=== PATIENT | female | born 2000 | race Caucasian/White ===

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

== ENCOUNTER 2021-02-13 18:45 | Emergency (ER) | payer OTHER ==
--- OUTSIDE RECORDS SUMMARY | 2021-02-13 18:47 | XMS REPORT | Continuity of Care Document ---
:2000 Author Organization [facility] t Address [address] [place] [address] Care Team Providers Name Role Phone Unavailable Unavailable Unavailable Problems This patient has no known problems. Allergies, Adverse Reactions, Alerts This patient has no known allergies or adverse reactions. Medications This patient has no known medications. Procedures This patient has no known procedures. Encounters Start End Encounter Admission Attending Care Care Encounter Source Date/Time Date/Time Type Type Clinicians Facility Department ID 2020-03-10 2020-03-10 Outpatient [facility] [id number] [facility] 2020-01-16 2020-01-16 Outpatient [facility] [id number] [facility] 2019-12-19 2019-12-19 Outpatient [facility] [id number] [facility] 2019-12-18 2019-12-18 Outpatient [facility] [id number] [facility] 2019-12-10 2019-12-10 Outpatient [facility] [id number] [facility] 2019-12-09 2019-12-09 [facility] [id number] Results This patient has no known results.
--- NOTE | 2021-02-13 22:47 | ER ---
Nurse's Notes [facility] Name: Alia Gonzalez Age: 20 yrs Sex: Female : 2000 Arrival Date: 02/13/2021 Time: 18:52 Bed 11 Private MD: Diagnosis: Chest pain, unspecified;Muscle spasm of back Presentation: 02/13 21:18 Chief complaint: Patient states: they have been having intermittent stabbing back pain bb which seems to move around x 1 week worsened today and it is making it hard to breath. Coronavirus screen: At this time, the client does not indicate any symptoms associated with coronavirus-19. Ebola Screen: No symptoms or risks identified at this time. Initial Sepsis Screen: Does the patient meet any 2 criteria? No. Patient's initial sepsis screen is negative. Does the patient have a suspected source of infection? No. Patient's initial sepsis screen is negative. Risk Assessment: Do you want to hurt yourself or someone else? Patient reports no desire to harm self or others. Onset of symptoms was February 07, 2021. 21:18 Method Of Arrival: Ambulatory bb 21:18 Acuity: ADRIANA 3 bb Triage Assessment: 21:21 General: Appears in no apparent distress. uncomfortable, Behavior is calm, cooperative. bb Pain: Complains of pain in back Pain currently is 4 out of 10 on a pain scale. Neuro: Level of Consciousness is awake, alert, obeys commands, Oriented to person, place, time, situation. Cardiovascular: Capillary refill < 3 seconds Patient's skin is warm and dry. Respiratory: Respiratory effort is even, unlabored. GI: No signs and/or symptoms were reported involving the gastrointestinal system. Derm: Skin is pink, warm \T\ dry. Musculoskeletal: Circulation, motion, and sensation intact. SHIFTMAN: 21:21 LMP N/A - Irregular menses bb Historical: - Allergies: 21:21 No Known Allergies; bb - Immunization history:: Adult Immunizations up to date, Client reports having NOT received the Covid vaccine. - Social history:: Smoking status: Patient denies any tobacco usage or history of. Patient uses alcohol, occasionally. street drugs, marijuana. Screenin:35 Abuse screen: Denies threats or abuse. Nutritional screening: No deficits noted. bb Tuberculosis screening: No symptoms or risk factors identified. Fall Risk None identified. Assessment: 21:35 Reassessment: No changes from previously documented assessment. Patient is alert, bb oriented x 3, equal unlabored respirations, skin warm/dry/pink. see triage assessment. 22:55 Reassessment: Patient is alert, oriented x 3, equal unlabored respirations, skin bb warm/dry/pink. pt verbalized understanding of and agrees to plan of care discharge instructions given pt ambulated with steady gait to exit accompanied by family. Vital Signs: 21:18 BP 130 / 91; Pulse 72; Resp 18 S; Temp 98.2(O); Pulse Ox 100% on R/A; Weight 65.77 kg bb (R); Height 5 ft. 7 in. (170.18 cm) (R); Pain 4/10; 22:53 BP 131 / 87; Pulse 77; Resp 16; Temp 97.9; Pulse Ox 100% ; lt3 21:18 Body Mass Index 22.71 (65.77 kg, 170.18 cm) bb ED Course: 18:52 Patient arrived in ED. ds1 21:21 Triage completed. bb 21:21 Arm band placed on Patient placed in an exam room, on a stretcher, on pulse oximetry. bb Family accompanied patient. 21:25 Felipe Cohn PA is PHCP. jr8 21:25 Donovan Cook MD is Attending Physician. jr8 21:34 Summer Eaton, CALEB is Primary Nurse. bb 21:35 Patient has correct armband on for positive identification. bb 21:35 Patient maintains SpO2 saturation greater than 95% on room air. bb 22:28 XRAY Chest Pa And Lat (2 Views) In Process Unspecified. EDMS 22:55 No provider procedures requiring assistance completed. Patient did not have IV access bb during this emergency room visit. Administered Medications: No medications were administered Outcome: 22:46 Discharge ordered by . jrRadha 22:55 Discharged to home ambulatory, with friend. bb 22:55 Condition: stable 22:55 Discharge instructions given to patient, Instructed on discharge instructions, follow up and referral plans. medication usage, Demonstrated understanding of instructions, follow-up care, medications, Prescriptions given X 2. 23:05 Patient left the ED. bb Signatures: Dispatcher [facility] BerryMarixa ds1 Summer Eaton, RN RN bb Felipe Cohn PA PA jr8 Marianela Adorno lt3
--- NOTE | 2021-02-13 22:47 | EDPHYS ---
Physician Documentation [facility] Name: Alia Gonzalez Age: 20 yrs Sex: Female : 2000 Arrival Date: 02/13/2021 Time: 18:52 Bed 11 Private MD: ED Physician Donovan Cook HPI: 02/13 22:23 This 20 yrs old Female presents to ER via Ambulatory with complaints of Chest Pain. jr8 22:23 This is a 20-year-old female patient that presented to the emergency room with jr8 complaints of right upper back pain and right lateral chest pain. Patient stated that she had traumatic incident a couple weeks ago that caused initial pain to her right lateral chest. Had been improving until she went back to work a couple days ago and now is having upper right back pain along with right lateral chest pain and shortness of breath. Denies new trauma to her back or chest.. 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 - Social history:: Smoking status: Patient denies any tobacco usage or history of. Patient uses alcohol, occasionally. street drugs, marijuana. ROS: 22:23 Eyes: Negative for injury, pain, redness, and discharge, ENT: Negative for injury, jr8 pain, and discharge, Neck: Negative for injury, pain, and swelling, Respiratory: Negative for shortness of breath, cough, wheezing, and pleuritic chest pain, Abdomen/GI: Negative for abdominal pain, nausea, vomiting, diarrhea, and constipation, MS/Extremity: Negative for injury and deformity, Skin: Negative for injury, rash, and discoloration, Neuro: Negative for headache, weakness, numbness, tingling, and seizure. 22:23 Cardiovascular: Positive for chest pain, with movement. 22:23 Back: Positive for pain at rest, pain with movement, Negative for radiated pain. Exam: 22:23 Constitutional: This is a well developed, well nourished patient who is awake, alert, jr8 and in no acute distress. Neck: Trachea midline, no thyromegaly or masses palpated, and no cervical lymphadenopathy. Supple, full range of motion without nuchal rigidity, or vertebral point tenderness. No Meningismus. Cardiovascular: Regular rate and rhythm with a normal S1 and S2. No gallops, murmurs, or rubs. Normal PMI, no JVD. No pulse deficits. Respiratory: Lungs have equal breath sounds bilaterally, clear to auscultation and percussion. No rales, rhonchi or wheezes noted. No increased work of breathing, no retractions or nasal flaring. Abdomen/GI: Soft, non-tender, with normal bowel sounds. No distension or tympany. No guarding or rebound. No evidence of tenderness throughout. Skin: Warm, dry with normal turgor. Normal color with no rashes, no lesions, and no evidence of cellulitis. MS/ Extremity: Pulses equal, no cyanosis. Neurovascular intact. Full, normal range of motion. Neuro: Awake and alert, GCS 15, oriented to person, place, time, and situation. Cranial nerves II-XII grossly intact. Motor strength 5/5 in all extremities. Sensory grossly intact. 22:23 Chest/axilla: Inspection: normal, Palpation: tenderness, that is mild, of the right lateral anterior chest. 22:23 Back: pain, that is moderate, of the right scapular area and right subscapular area, ROM is painful, normal spinal alignment noted, muscle spasm, is appreciated in the right scapular area and right subscapular area. Vital Signs: 21:18 BP 130 / 91; Pulse 72; Resp 18 S; Temp 98.2(O); Pulse Ox 100% on R/A; Weight 65.77 kg bb (R); Height 5 ft. 7 in. (170.18 cm) (R); Pain 4/10; 22:53 BP 131 / 87; Pulse 77; Resp 16; Temp 97.9; Pulse Ox 100% ; lt3 21:18 Body Mass Index 22.71 (65.77 kg, 170.18 cm) bb MDM: 21:25 Patient medically screened. jr8 22:23 Data reviewed: vital signs, nurses notes, radiologic studies, plain films. Data jr8 interpreted: Pulse oximetry: on room air is 100 %. Interpretation: normal. Counseling: I had a detailed discussion with the patient and/or guardian regarding: the historical points, exam findings, and any diagnostic results supporting the discharge/admit diagnosis, radiology results, the need for outpatient follow up, a family practitioner, to return to the emergency department if symptoms worsen or persist or if there are any questions or concerns that arise at home. 22:45 ED course: No acute findings on two-view chest x-ray. Most likely musculoskeletal at jr8 this point. We will start her on anti-inflammatory muscle relaxant. Knows to come back if she were to worsen at any point time.. 02/13 21:57 Order name: XRAY Chest Pa And Lat (2 Views) jr8 Administered Medications: No medications were administered Disposition: 02/14 04:04 Co-signature as Attending Physician, Donovan Cook MD. mh7 Disposition Summary: 02/13/21 22:46 Discharge Ordered Location: Home [facility] Problem: new jr8 Symptoms: have improved jr8 Condition: Stable jr8 Diagnosis - Chest pain, unspecified jr8 - Muscle spasm of back jr8 Followup: jr8 - With: Private Physician - When: 1 week - Reason: Recheck today's complaints, Continuance of care, Re-evaluation by your physician Discharge Instructions: - Discharge Summary Sheet jr8 - Chest Wall Pain jr8 - Muscle Cramps and Spasms jr8 Forms: - Medication Reconciliation Form jr8 - Thank You Letter jr8 - Antibiotic Education jr8 - Prescription Opioid Use jr8 Prescriptions: - Ibuprofen 800 mg Oral Tablet - take 1 tablet by ORAL route every 12 hours As needed take with food; 20 tablet; jr8 Refills: 0, Product Selection Permitted - Cyclobenzaprine 10 mg Oral Tablet - take 1 tablet by ORAL route every 8 hours As needed; 30 tablet; Refills: 0, jr8 Product Selection Permitted Signatures: Dispatcher [employer] Summer Jett, RN RN Felipe Zaldivar PA PA jr8 Donovan Cook MD MD mh7
[2021-02-13 23:21] VITALS: O2SAT 100
[2021-02-13 23:23] VITALS: BP 131/87; TEMP 97.9
--- NOTE | 2021-02-14 07:37 | RAD REPORT ---
EXAM DESCRIPTION: RAD - Chest Pa And Lat (2 Views) - 02/13/2021 10:28 pm CLINICAL HISTORY: CHEST PAIN COMPARISON: No comparisons FINDINGS: Lines: None. Lungs: No evidence of edema or pneumonia. Pleural: No significant pleural effusions or pneumothorax. Cardiac: The heart size is within normal limits. Bones: No acute fractures. Scoliosis. Other: IMPRESSION: No acute cardiopulmonary disease.
== END 2021-02-13 23:05 | disposition home or self-care (01) ==
LOC: ER 18:45
DX: M62.830 Muscle spasm of back (principal)
CPT/HCPCS: 71046; 99284

== ENCOUNTER 2021-09-11 02:36 | Emergency (ER) | payer OTHER ==
--- NOTE | 2021-09-11 03:25 | ER ---
Nurse's Notes [facility] Name: Alia Gonzalez Age: 21 yrs Sex: Female : 2000 Arrival Date: 09/11/2021 Time: 02:40 Bed 26 Private MD: Diagnosis: Contusion of left thigh;Abrasion, left thigh Presentation: 09/11 02:44 Chief complaint: Patient states: "I have a dog bite on my leg that happened a few ours tw5 ago that is brusing and swelling. Then a couple of days ago I cut it on the drain at work and it feels numb to the touch.". Coronavirus screen: Vaccine status: Patient reports receiving the 1st dose of the Covid vaccine. PFI Acquisition. Ebola Screen: Patient negative for fever greater than or equal to 101.5 degrees Fahrenheit, and additional compatible Ebola Virus Disease symptoms Patient denies exposure to infectious person. Patient denies travel to an Ebola-affected area in the 21 days before illness onset. Initial Sepsis Screen: Does the patient meet any 2 criteria? No. Patient's initial sepsis screen is negative. Does the patient have a suspected source of infection? No. Patient's initial sepsis screen is negative. Risk Assessment: Do you want to hurt yourself or someone else? Patient reports no desire to harm self or others. Onset of symptoms was September 10, 2021 at 23:00. 02:44 Method Of Arrival: Ambulatory tw5 02:44 Acuity: ADRIANA 4 tw5 Triage Assessment: 02:46 General: Appears in no apparent distress. Behavior is calm, cooperative, appropriate tw5 for age. Pain: Pain currently is 3 out of 10 on a pain scale. Musculoskeletal: Reports numbness in palmar aspect of distal phalanx of right index finger. Injury Description: Abrasion sustained to lateral aspect of left thigh was sustained 2-4 hours ago. 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 - Social history:: Smoking status: Reported history of juuling and/or vaping. Patient uses street drugs, marijuana. Screenin:01 Abuse screen: Denies threats or abuse. Nutritional screening: No deficits noted. ll3 Tuberculosis screening: No symptoms or risk factors identified. 03:42 Fall Risk None identified. ll3 Assessment: 02:50 General: PATIENT WOULD LIKE TO BE CALLED [place]. tw5 03:00 General: Appears uncomfortable, Behavior is calm, cooperative. Pain: Complains of pain ll3 in left leg and palmar aspect of distal phalanx of right index finger. Neuro: Level of Consciousness is awake, alert, obeys commands, Oriented to person, place, time, situation. Respiratory: Respiratory effort is even, unlabored, Respiratory pattern is regular, symmetrical. Derm: Bruising that is on lateral aspect of left thigh. Derm: Wound noted palmar aspect of distal phalanx of right index finger. Musculoskeletal: Circulation, motion, and sensation intact. Vital Signs: 02:44 BP 133 / 86; Pulse 57; Resp 18; Temp 98.1; Pulse Ox 99% on R/A; Weight 68.04 kg; Height tw5 5 ft. 6 in. (167.64 cm); Pain 0/10; 02:44 Body Mass Index 24.21 (68.04 kg, 167.64 cm) tw5 ED Course: 02:40 Patient arrived in ED. ja2 02:46 Triage completed. tw5 02:46 Arm band placed on. tw5 02:53 Mike Thurston MD is Attending Physician. kdr 03:00 Viola Medrano RN is Primary Nurse. ll3 03:01 Patient has correct armband on for positive identification. Bed in low position. Call ll3 light in reach. Side rails up X 1. 03:42 No provider procedures requiring assistance completed. Patient did not have IV access ll3 during this emergency room visit. Administered Medications: 03:42 Drug: Motrin (ibuprofen) 600 mg Route: PO; ll3 03:42 Follow up: Response: Medication administered at discharge. ll3 Medication: 03:42 VIS not applicable for this client. ll3 Outcome: 03:25 Discharge ordered by . kdr 03:42 Discharged to home ambulatory, with significant other. ll3 03:42 Condition: stable 03:42 Discharge instructions given to patient, significant other, Instructed on discharge instructions, follow up and referral plans. medication usage, Demonstrated understanding of instructions, follow-up care, medications, Prescriptions given X 1. 03:42 Patient left the ED. ll3 Signatures: Mike Thurston MD MD [facility] Lety Morrison Tiffany 5 Viola Medrano RN RN ll3
--- NOTE | 2021-09-11 03:25 | EDPHYS ---
Physician Documentation [facility] Name: Alia Gonzalez Age: 21 yrs Sex: Female : 2000 Arrival Date: 09/11/2021 Time: 02:40 Bed 26 Private MD: ED Physician Mike Thurston HPI: 09/11 04:05 This 21 yrs old Female presents to ER via Ambulatory with complaints of Finger Injury, kdr Dog Bite. 04:05 The patient was bitten on the lateral aspect of left thigh, by a dog, while playing, at [facility] home. Onset: The symptoms/episode began/occurred suddenly, just prior to arrival. Animal information: The animal was reported to appear healthy. Animal's vaccinations are up to date. The animal is known and can be quarantined. Secondary to the bite the patient reports an abrasion, pain, swelling. Associated signs and symptoms: The patient has no apparent associated signs or symptoms. Severity of symptoms: At their worst the symptoms were mild, in the emergency department the symptoms are unchanged. The patient has not experienced similar symptoms in the past. The patient has not recently seen a physician. 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 - Social history:: Smoking status: Reported history of juuling and/or vaping. Patient uses street drugs, marijuana. ROS: 04:05 Constitutional: Negative for fever, chills, and weight loss. kdr 04:05 MS/extremity: Positive for abrasion, contusion, pain, swelling, tenderness, of the lateral aspect of left thigh, Negative for Exam: 04:05 Constitutional: This is a well developed, well nourished patient who is awake, alert, kdr and in no acute distress. 04:05 Skin: injury, abrasion(s), small abrasion noted, of the lateral aspect of left thigh. Vital Signs: 02:44 BP 133 / 86; Pulse 57; Resp 18; Temp 98.1; Pulse Ox 99% on R/A; Weight 68.04 kg; Height tw5 5 ft. 6 in. (167.64 cm); Pain 0/10; 02:44 Body Mass Index 24.21 (68.04 kg, 167.64 cm) tw5 MDM: 03:25 Patient medically screened. kdr 04:05 Data reviewed: vital signs, nurses notes, lab test result(s), radiologic studies. kdr Counseling: I had a detailed discussion with the patient and/or guardian regarding: the historical points, exam findings, and any diagnostic results supporting the discharge/admit diagnosis, the need for outpatient follow up. Administered Medications: 03:42 Drug: Motrin (ibuprofen) 600 mg Route: PO; ll3 03:42 Follow up: Response: Medication administered at discharge. ll3 Disposition Summary: 09/11/21 03:25 Discharge Ordered Location: Home kdr Problem: new kdr Symptoms: have improved kdr Condition: Stable kdr Diagnosis - Contusion of left thigh kdr - Abrasion, left thigh kdr Followup: kdr - With: Private Physician - When: 2 - 3 days - Reason: If symptoms return, Further diagnostic work-up, Recheck today's complaints, Continuance of care, Re-evaluation by your physician Discharge Instructions: - Discharge Summary Sheet kdr - Contusion, [id number]-vs-Mmia kdr - Abrasion, [id number] kdr Forms: - Medication Reconciliation Form kdr - Thank You Letter kdr Prescriptions: - Ibuprofen 600 mg Oral Tablet - take 1 tablet by ORAL route every 6 hours As needed take with food; 30 tablet; kdr Refills: 0, Product Selection Permitted Signatures: Mike Thurston MD MD kdr Candelaria Hodges tw5 Viola Medrano RN RN ll3
[2021-09-11] MEDS ORDERED: IBUPROFEN 200 MG TAB PO ONE (03:34)
[2021-09-11] MEDS ORDERED: IBUPROFEN 400 MG TAB ONE (03:35)
[2021-09-11 04:02] VITALS: BP 133/86; TEMP 98.1; O2SAT 99
== END 2021-09-11 03:42 | disposition home or self-care (01) ==
LOC: ER 02:36
DX: S70.312A Abrasion, left thigh, initial encounter (principal); W54.0XXA Bitten by dog, initial encounter; J45.909 Unspecified asthma, uncomplicated
CPT/HCPCS: 99283

== ENCOUNTER 2022-10-26 06:34 | Emergency (ER) | payer SELFPAY ==
--- OUTSIDE RECORDS SUMMARY | 2022-10-26 06:37 | XMS REPORT | Continuity of Care Document ---
:2000 Author Organization [facility] t Address [address] [place] [address] Care Team Providers Name Role Phone Unavailable Unavailable Unavailable Payers Payer Name Policy Type Policy Number Effective Date Expiration Date S [place] C1 [id number] [facility] Spiri t [facility] C1 [id number] Common Spiri t [facility] C1 [id number] [facility] C1 [id number] [facility] C1 [id number] [facility] C1 [id number] [facility] Problems Condition Condition Condition Status Onset Resolution Last Treating Co mments Source Name Details Category Date Date Treatment Clinician Date [id number] Low Problem Active Common testostero [facility] Allergies, Adverse Reactions, Alerts This patient has no known allergies or adverse reactions. Social History Social Habit Start Date Stop Date Quantity Comments Source History of Tobacco Use Co mmon [facility] Sex Assigned At Com mon [facility] Smoking Status Start Date Stop Date Source Never Smoker [facility] Medications Ordered Filled Start Stop Current Ordering Indication Dosage Frequency Signature Comments Components Source Medication Medication Date Date Medication? Clinician (SIG) Name Name Testosteron Testosteron No 1{ml} Testostero e Cypionate e Cypionate ne 200 MG/ML 200 MG/ML Cypionate 200 MG/ML ProAir HFA ProAir HFA No 1{puff_ 6xD ProAir HFA 108 (90 108 (90 as_need 108 (90 Base) Base) ed} Base) MCG/ACT MCG/ACT MCG/ACT Testosteron Testosteron No 1{ml} Testostero e Cypionate e Cypionate ne 200 MG/ML 200 MG/ML Cypionate 200 MG/ML ProAir HFA ProAir HFA No 1{puff_ 6xD ProAir HFA 108 (90 108 (90 as_need 108 (90 Base) Base) ed} Base) MCG/ACT MCG/ACT MCG/ACT Testosteron Testosteron No 1{ml} Testostero e Cypionate e Cypionate ne 200 MG/ML 200 MG/ML Cypionate 200 MG/ML ProAir HFA ProAir HFA No 1{puff_ 6xD ProAir HFA 108 (90 108 (90 as_need 108 (90 Base) Base) ed} Base) MCG/ACT MCG/ACT MCG/ACT Testosteron Testosteron No 1{ml} Testostero e Cypionate e Cypionate ne 200 MG/ML 200 MG/ML Cypionate 200 MG/ML ProAir HFA ProAir HFA No 1{puff_ 6xD ProAir HFA 108 (90 108 (90 as_need 108 (90 Base) Base) ed} Base) MCG/ACT MCG/ACT MCG/ACT ProAir HFA ProAir HFA No 1{puff_ 6xD ProAir HFA 108 (90 108 (90 as_need 108 (90 Base) Base) ed} Base) MCG/ACT MCG/ACT MCG/ACT Testosteron Testosteron No 1{ml} Testostero e Cypionate e Cypionate ne 200 MG/ML 200 MG/ML Cypionate 200 MG/ML Testosteron Testosteron No 1{ml} Testostero e Cypionate e Cypionate ne 200 MG/ML 200 MG/ML Cypionate 200 MG/ML ProAir HFA ProAir HFA No 1{puff_ 6xD ProAir HFA 108 (90 108 (90 as_need 108 (90 Base) Base) ed} Base) MCG/ACT MCG/ACT MCG/ACT Vital Signs Vital Name Observation Time Observation Value Comments Source height 2020-03-10 09:00:00 66 [in_i] Common S [facility] - [facility] weight 2020-03-10 09:00:00 143.8 [lb_av] Common [facility] temperature 2020-03-10 09:00:00 98 [degF] [facility] bmi 2020-03-10 09:00:00 23.21 kg/m2 Common S p[facility] - [facility] oximetry 2020-03-10 09:00:00 98 % Common S [facility] blood pressure 2020-03-10 09:00:00 121 mm[Hg] Common [facility] systolic [facility] blood pressure 2020-03-10 09:00:00 63 mm[Hg] Common [facility] - diastolic [facility] height 2019-12-09 11:00:00 66 [in_i] Common [facility] weight 2019-12-09 11:00:00 145.2 [lb_av] Common [facility] temperature 2019-12-09 11:00:00 98 [degF] Common S [facility] bmi 2019-12-09 11:00:00 23.43 kg/m2 [facility] S [facility] oximetry 2019-12-09 11:00:00 96 % [facility] 2019-12-09 11:00:00 112 mm[Hg] Common [facility] - systolic [facility] blood pressure 2019-12-09 11:00:00 62 mm[Hg] Common [facility] - diastolic [facility] Procedures This patient has no known procedures. Encounters Start End Encounter Admission Attending Care Care Encounter Source Date/Time Date/Time Type Type Clinicians Facility Department ID 2021-03-09 Outpatient [facility] [id number] Common 13:26:59 [id number] [facility] 2021-03-09 [facility] [id number] Common 11:59:19 [id number] [facility] 2020-03-10 2020-03-10 OFFICE [facility] [id number] Co mmon 00:00:00 00:00:00 VISIT EST Spir it PT LEVEL 3 [facility] 2020-01-16 2020-01-16 (TEL) STLMLC ST[facility] [id number] Co mmon 00:00:00 00:00:00 [facility] 2019-12-19 2019-12-19 (TEL) STLMLC STLMLC [id number] Co mmon 00:00:00 00:00:00 [facility] 2019-12-18 2019-12-18 (TEL) STLMLC STLMLC [id number] Co mmon 00:00:00 00:00:00 [facility] 2019-12-10 2019-12-10 (TEL) STLMLC STLMLC [id number] Co mmon 00:00:00 00:00:00 [facility] 2019-12-09 2019-12-09 OFFICE STLMLC STLMLC [id number] Co mmon 00:00:00 00:00:00 VISIT NEW Spir it PT LEVEL 3 [facility] Results This patient has no known results.
[2022-10-26 07:49] LABS: Absolute Lymphocytes (CBC) 2.3 K/uL (0.7-4.9); Hematocrit 38.5 % (36.0-45.0); Lymphocytes % 32.8 % (15.3-44.8); MCV 88.8 fL (80-100); MPV 7.5 fL (7.6-11.3); Platelets 235 thou/uL (152-406); RBC Red Blood Cell Count 4.34 M/uL (3.86-4.86)
--- NOTE | 2022-10-26 08:06 | EDPHYS ---
Physician Documentation [facility] Name: Alia Gonzalez Age: 22 yrs Sex: Female : 2000 Arrival Date: 10/26/2022 Time: 06:34 Bed 5 Private MD: ASHLEY Physician Srinivas Maldonado HPI: 10/26 07:57 This 22 yrs old Female presents to ER via Ambulatory with complaints of fredrick Abscess. 07:57 The patient presents with an abscess of the right axilla. Description: The affected fredrick area is not seen, poorly defined. 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 - Social history:: Smoking status: Patient reports the use of cigarette tobacco products, Reported history of juuling and/or vaping. ROS: 07:59 Constitutional: Negative for fever, chills, and weight loss, Eyes: Negative for injury, fredrick pain, redness, and discharge, ENT: Negative for injury, pain, and discharge, Neck: Negative for injury, pain, and swelling, Cardiovascular: Negative for chest pain, palpitations, and edema, Respiratory: Negative for shortness of breath, cough, wheezing, and pleuritic chest pain, Abdomen/GI: Negative for abdominal pain, nausea, vomiting, diarrhea, and constipation, Back: Negative for injury and pain, : Negative for injury, bleeding, discharge, and swelling, Skin: Negative for injury, rash, and discoloration, Neuro: Negative for headache, weakness, numbness, tingling, and seizure, Psych: Negative for depression, anxiety, suicide ideation, homicidal ideation, and hallucinations, Allergy/Immunology: Negative for hives, rash, and allergies, Endocrine: Negative for neck swelling, polydipsia, polyuria, polyphagia, and marked weight changes, Hematologic/Lymphatic: Negative for swollen nodes, abnormal bleeding, and unusual bruising. 07:59 MS/extremity: Positive for pain, of the right axilla. Exam: 07:59 Constitutional: This is a well developed, well nourished patient who is awake, alert, fredrick and in no acute distress. Head/Face: Normocephalic, atraumatic. Eyes: Pupils equal round and reactive to light, extra-ocular motions intact. Lids and lashes normal. Conjunctiva and sclera are non-icteric and not injected. Cornea within normal limits. Periorbital areas with no swelling, redness, or edema. ENT: Nares patent. No nasal discharge, no septal abnormalities noted. Tympanic membranes are normal and external auditory canals are clear. Oropharynx with no redness, swelling, or masses, exudates, or evidence of obstruction, uvula midline. Mucous membranes moist. Neck: Trachea midline, no thyromegaly or masses palpated, and no cervical lymphadenopathy. Supple, full range of motion without nuchal rigidity, or vertebral point tenderness. No Meningismus. Chest/axilla: Normal chest wall appearance and motion. Nontender with no deformity. No lesions are appreciated. Cardiovascular: Regular rate and rhythm with a normal S1 and S2. No gallops, murmurs, or rubs. Normal PMI, no JVD. No pulse deficits. Respiratory: Lungs have equal breath sounds bilaterally, clear to auscultation and percussion. No rales, rhonchi or wheezes noted. No increased work of breathing, no retractions or nasal flaring. Abdomen/GI: Soft, non-tender, with normal bowel sounds. No distension or tympany. No guarding or rebound. No evidence of tenderness throughout. Back: No spinal tenderness. No costovertebral tenderness. Full range of motion. Skin: Warm, dry with normal turgor. Normal color with no rashes, no lesions, and no evidence of cellulitis. MS/ Extremity: Pulses equal, no cyanosis. Neurovascular intact. Full, normal range of motion. Neuro: Awake and alert, GCS 15, oriented to person, place, time, and situation. Cranial nerves II-XII grossly intact. Motor strength 5/5 in all extremities. Sensory grossly intact. Cerebellar exam normal. Normal gait. Psych: Awake, alert, with orientation to person, place and time. Behavior, mood, and affect are within normal limits. Vital Signs: 06:45 BP 114 / 85; Pulse 91; Resp 18 S; Temp 97.8(O); Pulse Ox 100% on R/A; Weight 63.5 kg as6 (R); Height 5 ft. 6 in. (R); Pain 3; 06:45 Body Mass Index 22.60 (63.50 kg, 167.64 cm) as6 06:45 Pain Scale: Adult as6 MDM: 07:06 Patient medically screened. [facility] 08:00 Differential diagnosis: abscess, allergic reaction, cellulitis, insect bite. Data [facility] reviewed: vital signs, nurses notes, lab test result(s), radiologic studies, ultrasound. Consideration of Admission/Observation Escalation of care including admission/observation considered. I considered the following discharge prescriptions or medication management in the emergency department Medications were administered in the Emergency Department. See MAR. Test considered but Not performed: EKG: no ekg. Care significantly affected by the following chronic conditions: asthma. 10/26 07:30 Order name: CBC with Diff; Complete Time: 08:05 [facility] 10/26 07:30 Order name: Comprehensive Metabolic Panel; Complete Time: 08:10 [facility] 10/26 07:30 Order name: Urinalysis w/ reflexes [facility] 10/26 07:30 Order name: PREGU [facility] 10/26 07:30 Order name: US Extrmty Nonvasular Limited: right axilla; Complete Time: 08:26 [facility] Administered Medications: 08:17 Not Given (Patient Refused): NS 0.9% IV 500 ml IV at bolus once iw 08:17 Not Given (Patient Refused): Ketorolac IVP 30 mg IVP once iw 08:17 Drug: Cephalexin PO 500 mg Route: PO; iw Disposition Summary: 10/26/22 08:06 Discharge Ordered Location: Home [facility] Problem: new fredrick Symptoms: have improved fredrick Condition: Stable fredrick Diagnosis - Localized enlarged lymph nodes fredrick Followup: fredrick - With: Private Physician - When: 2 - 3 days - Reason: Recheck today's complaints, Continuance of care, Re-evaluation by your physician Followup: fredrick - With: - When: 2 - 3 days - Reason: Recheck today's complaints, Re-evaluation by your physician Discharge Instructions: - Discharge Summary Sheet fredrick - Lymphadenopathy fredrick Forms: - Medication Reconciliation Form fredrick - Thank You Letter fredrick - Antibiotic Education fredrick - Prescription Opioid Use fredrick - Patient Portal Instructions [facility] - Leadership Thank You Letter [facility] Prescriptions: - Cephalexin 500 mg Oral Capsule - take 1 capsule by ORAL route every 6 hours for 7 days; 28 capsule; Refills: 0, fredrick Product Selection Permitted - Ibuprofen 600 mg Oral Tablet - take 1 tablet by ORAL route every 6 hours As needed take with food; 30 tablet; [facility] Refills: 0, Product Selection Permitted Signatures: Dispatcher [employer] Srinivas Palmer MD MD cha Williams, Irene, RN RN iw Geo Sands RN RN as6
--- NOTE | 2022-10-26 08:06 | ER ---
Nurse's Notes [facility] Name: Alia Gonzalez Age: 22 yrs Sex: Female : 2000 Arrival Date: 10/26/2022 Time: 06:34 Bed 5 Private MD: Diagnosis: Localized enlarged lymph nodes Presentation: 10/26 06:45 Chief complaint: Patient states: "I noticed a bump under my right armpit about a week as6 ago and it's not getting better". Coronavirus screen: At this time, the client does not indicate any symptoms associated with coronavirus-19. Ebola Screen: No symptoms or risks identified at this time. Initial Sepsis Screen: Does the patient meet any 2 criteria? No. Patient's initial sepsis screen is negative. Does the patient have a suspected source of infection? No. Patient's initial sepsis screen is negative. Risk Assessment: Do you want to hurt yourself or someone else? Patient reports no desire to harm self or others. Onset of symptoms was October 19, 2022. 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 - Social history:: Smoking status: Patient reports the use of cigarette tobacco products, Reported history of juuling and/or vaping. Screenin:46 Abuse screen: Denies threats or abuse. Denies injuries from another. iw Assessment: 07:46 General: Appears in no apparent distress. Behavior is calm, cooperative. Pain: iw Complains of pain in right axilla. Neuro: Level of Consciousness is awake, alert, obeys commands, Oriented to person, place, time, situation, Moves all extremities. Cardiovascular: Patient's skin is warm and dry. Respiratory: Respiratory effort is even, unlabored, Respiratory pattern is regular, symmetrical. Derm: Skin is intact, is healthy with good turgor. Musculoskeletal: Range of motion: intact in all extremities. Vital Signs: 06:45 BP 114 / 85; Pulse 91; Resp 18 S; Temp 97.8(O); Pulse Ox 100% on R/A; Weight 63.5 kg as6 (R); Height 5 ft. 6 in. (R); Pain 3/10; 06:45 Body Mass Index 22.60 (63.50 kg, 167.64 cm) as6 06:45 Pain Scale: Adult as6 ED Course: 06:36 Patient arrived in ED. rg4 06:44 Arm band placed on. as6 06:50 Triage completed. as6 07:06 Srinivas Maldonado MD is Attending Physician. fredrick 07:45 Maty Swenson, RN is Primary Nurse. iw 07:57 Inserted saline lock: 22 gauge in left antecubital area, using aseptic technique. Blood iw collected. 07:58 US Extrmty Nonvasular Limited: right axilla In Process Unspecified. EDMS 08:05 Suleman Salas MD is Referral Physician. fredrick 09:02 Provided Education on: antibiotics . iw 09:02 No provider procedures requiring assistance completed. IV discontinued, intact, iw bleeding controlled, No redness/swelling at site. Pressure dressing applied. 09:03 Patient has correct armband on for positive identification. iw Administered Medications: 08:17 Not Given (Patient Refused): NS 0.9% IV 500 ml IV at bolus once iw 08:17 Not Given (Patient Refused): Ketorolac IVP 30 mg IVP once iw 08:17 Drug: Cephalexin PO 500 mg Route: PO; iw Medication: 07:57 VIS not applicable for this client. iw Outcome: 08:06 Discharge ordered by . [facility] 09:02 Discharged to home ambulatory. iw 09:02 Condition: good 09:02 Discharge instructions given to patient, Instructed on discharge instructions, follow up and referral plans. medication usage, Demonstrated understanding of instructions, follow-up care, medications, Prescriptions given X 2. 09:03 Patient left the ED. iw Signatures: Dispatcher [employer] EDHI Srinivas Maldonado MD MD cha Williams, Irene, RN RN iw Cheryl Rondon rg4 Geo Sands RN RN as6
[2022-10-26 08:07] LABS: Albumin 3.6 g/dL (3.4-5.0); Bilirubin Total 0.2 mg/dL (0.2-1.0); Potassium 3.7 mEq/L (3.5-5.1)
--- NOTE | 2022-10-26 08:21 | RAD REPORT ---
EXAM DESCRIPTION: US - Extremity Nonvascular Limited - 10/26/2022 7:56 am CLINICAL HISTORY: Pain. Palpable masses in armpit COMPARISON: None. TECHNIQUE: Real-time sonographic evaluation of the right axilla was performed. FINDINGS: Numerous enlarged rounded and ovoid lymph nodes in the right axilla, showing variable degr ees of effacement of the hilum with vascularity adjacent to the hilum. The largest measures 5.2 x 1.9 cm. No abnormal shadowing masses. IMPRESSION: Enlarged lymph nodes throughout the right axilla as above. Inflammatory/ reactive, or ne oplastic etiologies should be considered.
[2022-10-26] MEDS ORDERED: CEPHALEXIN 250 MG CAP ONE (08:25)
[2022-10-26 08:58] LABS: Specific Gravity 1.029 (1.005-1.030)
[2022-10-26 09:05] LABS: Specific Gravity 1.029 (1.005-1.030); Urine Bacteria None Seen /HPF (<20); Urine Bilirubin NEGATIVE (Negative); Urine Blood Negative (Negative); Urine Clarity Extremely Turbid (Clear); Urine Color Light-Yellow (Yellow); Urine Glucose NEGATIVE (Negative); Urine Mucus Slight /HPF (None Seen); Urine Protein TRACE (Negative); Urine RBC <5 /HPF (None Seen); Urine Urobilinogen Normal (Normal); Urine pH 7.5 (5.0-7.0)
[2022-10-26 09:28] VITALS: BP 114/85; TEMP 97.8; O2SAT 100
== END 2022-10-26 09:03 | disposition home or self-care (01) ==
LOC: ER 06:34
DX: R59.0 Localized enlarged lymph nodes (principal)
CPT/HCPCS: 36415; 76882; 80053; 81001; 81025; 85025; 99284

== ENCOUNTER → 2023-04-21 | Emergency (ER) | payer SELFPAY ==
--- OUTSIDE RECORDS SUMMARY | 2023-04-21 23:23 | XMS REPORT | Continuity of Care Document ---
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 C[address] [id number] [facility] C[address] [id number] [facility] C[address] [id number] [facility] Problems Condition Name Condition Details Condition Category Status Onset Date Resolution Date Last Treatment Date Treating Clinician Comments Source [id number] Low testostero ne Problem Active [facility] Social History Social Habit Start Date Stop Date Quantity Comments Source History of Tobacco Use [facility] Sex Assigned At [facility] Smoking Status Start Date Stop Date Source Never Smoker [facility] Medications Ordered Medication Name Filled Medication Name Start Date Stop Date Current Medication? Ordering Clinician Indication Dosage Frequency Signature (SIG) Comments Components Source Testosteron e Cypionate 200 MG/ML Testosteron e Cypionate 200 MG/ML No 1{ml} Testostero ne Cypionate 200 MG/ML ProAir HFA 108 (90 Base) MCG/ACT ProAir HFA 108 (90 Base) MCG/ACT No 1{puff_ as_need ed} 6xD ProAir HFA 108 (90 Base) MCG/ACT Testosteron e Cypionate 200 MG/ML Testosteron e Cypionate 200 MG/ML No 1{ml} Testostero ne Cypionate 200 MG/ML ProAir HFA 108 (90 Base) MCG/ACT ProAir HFA 108 (90 Base) MCG/ACT No 1{puff_ as_need ed} 6xD ProAir HFA 108 (90 Base) MCG/ACT Testosteron e Cypionate 200 MG/ML Testosteron e Cypionate 200 MG/ML No 1{ml} Testostero ne Cypionate 200 MG/ML ProAir HFA 108 (90 Base) MCG/ACT ProAir HFA 108 (90 Base) MCG/ACT No 1{puff_ as_need ed} 6xD ProAir HFA 108 (90 Base) MCG/ACT Testosteron e Cypionate 200 MG/ML Testosteron e Cypionate 200 MG/ML No 1{ml} Testostero ne Cypionate 200 MG/ML ProAir HFA 108 (90 Base) MCG/ACT ProAir HFA 108 (90 Base) MCG/ACT No 1{puff_ as_need ed} 6xD ProAir HFA 108 (90 Base) MCG/ACT ProAir HFA 108 (90 Base) MCG/ACT ProAir HFA 108 (90 Base) MCG/ACT No 1{puff_ as_need ed} 6xD ProAir HFA 108 (90 Base) MCG/ACT Testosteron e Cypionate 200 MG/ML Testosteron e Cypionate 200 MG/ML No 1{ml} Testostero ne Cypionate 200 MG/ML Testosteron e Cypionate 200 MG/ML Testosteron e Cypionate 200 MG/ML No 1{ml} Testostero ne Cypionate 200 MG/ML ProAir HFA 108 (90 Base) MCG/ACT ProAir HFA 108 (90 Base) MCG/ACT No 1{puff_ as_need ed} 6xD ProAir HFA 108 (90 Base) MCG/ACT Vital Signs Vital Name Observation Time Observation Value Comments S ource height 2020-03-10 09:00:00 66 [in_i] Commo n [facility] weight 2020-03-10 09:00:00 143.8 [lb_av] Co mmon [facility] temperature 2020-03-10 09:00:00 98 [degF] Comm on [facility] bmi 2020-03-10 09:00:00 23.21 kg/m2 Comm on [facility] oximetry 2020-03-10 09:00:00 98 % Commo n [facility] blood pressure systolic 2020-03-10 09:00:00 121 mm[Hg] [facility] blood pressure diastolic 2020-03-10 09:00:00 63 mm[Hg] [facility] height 2019-12-09 11:00:00 66 [in_i] Commo n [facility] weight 2019-12-09 11:00:00 145.2 [lb_av] Co mmon [facility] temperature 2019-12-09 11:00:00 98 [degF] Comm on [facility] bmi 2019-12-09 11:00:00 23.43 kg/m2 Comm on [facility] oximetry 2019-12-09 11:00:00 96 % Commo n [facility] blood pressure systolic 2019-12-09 11:00:00 112 mm[Hg] [facility] blood pressure diastolic 2019-12-09 11:00:00 62 mm[Hg] [facility] Encounters Start Date/Time End Date/Time Encounter Type Admission Type Attending [facility] Care Facility Care Department Encounter ID Source 2021-03-09 13:26:59 Outpatient [facility] [id number] [facility] 2021-03-09 11:59:19 Outpatient [facility] ST[facility] [id number] [facility] 2020-03-10 00:00:00 2020-03-10 00:00:00 OFFICE VISIT EST PT LEVEL 3 [facility] [id number] [facility] 2020-01-16 00:00:00 2020-01-16 00:00:00 (TEL) [facility]C ST[facility] [id number] [facility] 2019-12-19 00:00:00 2019-12-19 00:00:00 (TEL) [facility]LMLC STL[facility]C [id number] [facility] 2019-12-18 00:00:00 2019-12-18 00:00:00 (TEL) [facility]C ST[facility]C [id number] [facility] 2019-12-10 00:00:00 2019-12-10 00:00:00 (TEL) [facility]C STL[facility]C [id number] [facility] 2019-12-09 00:00:00 2019-12-09 00:00:00 OFFICE VISIT NEW PT LEVEL 3 [facility] STL[facility]C [id number] [facility]
--- NOTE | 2023-04-22 00:35 | ER ---
Nurse's Notes [facility] Name: Alia Gonzalez Age: 22 yrs Sex: Female : 2000 Arrival Date: 04/21/2023 Time: 23:01 Bed 19 Private MD: Diagnosis: Chest pain, unspecified Presentation: 04/20 23:19 Chief complaint: Patient states: pt was eating and then got a sharp shooting pain to as6 chest that took his breath away. symptoms have resolved by time of triage. Coronavirus screen: At this time, the client does not indicate any symptoms associated with coronavirus-19. Ebola Screen: No symptoms or risks identified at this time. Initial Sepsis Screen: Does the patient meet any 2 criteria? No. Patient's initial sepsis screen is negative. Does the patient have a suspected source of infection? No. Patient's initial sepsis screen is negative. Risk Assessment: Do you want to hurt yourself or someone else? Patient reports no desire to harm self or others. Onset of symptoms was April 21, 2023. 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 - Social history:: Smoking status: Patient reports the use of cigarette tobacco products, denies chronic smoking, but will smoke occasionally. Screenin:25 [facility] ED Fall Risk Assessment (Adult) History of falling in the last 3 months, jw7 including since admission No falls in past 3 months (0 pts) Confusion or Disorientation No (0 pts) Intoxicated or Sedated No (0 pts) Impaired Gait No (0 pts) Mobility Assist Device Used No (0 pt) Altered Elimination No (0 pt) Score/Fall Risk Level 0 - 2 = Low Risk Oriented to surroundings, Maintained a safe environment, Educated pt \T\ family on fall prevention, incl call for assistance when getting out of bed. Abuse screen: Denies threats or abuse. Denies injuries from another. Nutritional screening: No deficits noted. Tuberculosis screening: No symptoms or risk factors identified. Assessment: 23:24 General: Appears in no apparent distress. comfortable, Behavior is calm, cooperative. jw7 Pain: Denies pain. Neuro: Level of Consciousness is awake, alert, obeys commands, Oriented to person, place, time, situation. Cardiovascular: Heart tones S1 S2 present Capillary refill < 3 seconds Clubbing of nail beds is absent JVD is absent Patient's skin is warm and dry. Rhythm is sinus rhythm. Respiratory: Airway is patent Trachea midline Respiratory effort is even, unlabored, Respiratory pattern is regular, symmetrical, Breath sounds are clear bilaterally. GI: Abdomen is flat, non-distended, Bowel sounds present X 4 quads. Abd is soft and non tender X 4 quads. : No deficits noted. No signs and/or symptoms were reported regarding the genitourinary system. EENT: No deficits noted. No signs and/or symptoms were reported regarding the EENT system. Derm: Skin is intact, is healthy with good turgor, Skin is dry, Skin is normal, Skin temperature is warm. Musculoskeletal: Circulation, motion, and sensation intact. Range of motion: intact in all extremities. 04/21 00:33 Reassessment: Patient appears in no apparent distress at this time. No changes from jw7 previously documented assessment. Patient and/or family updated on plan of care and expected duration. Pain level reassessed. Patient is alert, oriented x 3, equal unlabored respirations, skin warm/dry/pink. Vital Signs: 04/20 23:19 BP 134 / 93; Pulse 82; Resp 16 S; Temp 97.9(O); Pulse Ox 100% on R/A; Weight 65.77 kg as6 (R); Height 5 ft. 7 in. (R); Pain 0/10; 04/21 00:30 BP 105 / 69; Pulse 74; Resp 16 S; Pulse Ox 98% on R/A; jw7 04/20 23:19 Body Mass Index 22.71 (65.77 kg, 170.18 cm) as6 04/20 23:19 Pain Scale: Adult as6 ED Course: 04/20 23:10 Patient arrived in ED. gm2 23:13 Ervin Marks DO is Attending Physician. ms3 23:22 Triage completed. as6 23:22 Arm band placed on. as6 23:23 Ledy Moffett, RN is Primary Nurse. jw7 23:25 Patient has correct armband on for positive identification. Bed in low position. Call jw7 light in reach. Side rails up X 1. 23:30 Provided Education on: Use of Call Light. jw7 03 00:16 Chest Pa And Lat (2 Views) XRAY In Process Unspecified. EDMS 00:35 No provider procedures requiring assistance completed. Patient did not have IV access jw7 during this emergency room visit. Administered Medications: No medications were administered Medication: 00:35 VIS not applicable for this client. jw7 Outcome: 00:35 Discharge ordered by . ms3 00:44 Discharged to home ambulatory, jw7 00:44 Condition: stable 00:44 Discharge instructions given to patient, Instructed on discharge instructions, follow up and referral plans. Demonstrated understanding of instructions, follow-up care, 00:44 Patient left the ED. jw7 Signatures: Dispatcher [employer] EDMS Ervin Marks DO DO ms3 Geo Sands RN RN as6 Ledy Moffett RN RN jw7 Saadia Alonso gm2 Corrections: (The following items were deleted from the chart) 04/20 23:32 23:24 Cardiovascular: Heart tones S1 S2 present Capillary refill < 3 seconds Clubbing jw7 of nail beds is absent JVD is absent Patient's skin is warm and dry. jw7
--- NOTE | 2023-04-22 00:36 | EDPHYS ---
Physician Documentation [facility] Name: Alia Gonzalez Age: 22 yrs Sex: Female : 2000 Arrival Date: 04/21/2023 Time: 23:01 Bed 19 Private MD: ED Physician Ervin Marks HPI: 04/21 00:11 This 22 yrs old Female presents to ER via Ambulatory with complaints of Abdominal Pain, ms3 Asthma Exacerbation. 00:11 22-year-old female with past medical history of asthma presents to the emergency ms3 department for chest pain that began after eating tonight. Patient states leaning forward because the pain resolved. Patient denies any inciting factors. 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 - Social history:: Smoking status: Patient reports the use of cigarette tobacco products, denies chronic smoking, but will smoke occasionally. ROS: 04/21 00:11 Constitutional: Negative for fever, and chills. Neck: Negative for injury, pain, and ms3 swelling, Respiratory: Negative for shortness of breath, cough, wheezing, and pleuritic chest pain, Abdomen/GI: Negative for abdominal pain, nausea, vomiting, diarrhea, and constipation, MS/Extremity: Negative for injury and deformity, Skin: Negative for injury, rash, and discoloration, Cardiovascular: Positive for chest pain, Exam: 00:11 Constitutional: This is a well developed, well nourished patient who is awake, alert, ms3 and in no acute distress. Head/Face: Normocephalic, atraumatic. Neck: Trachea midline, no cervical lymphadenopathy. Supple, full range of motion without nuchal rigidity, or vertebral point tenderness. No Meningismus. Chest/axilla: Normal chest wall appearance and motion. Nontender with no deformity. Cardiovascular: Regular rate and rhythm with a normal S1 and S2. No gallops, murmurs, or rubs. Normal PMI, no JVD. No pulse deficits. Respiratory: Lungs have equal breath sounds bilaterally, clear to auscultation and percussion. No rales, rhonchi or wheezes noted. No increased work of breathing, no retractions or nasal flaring. Abdomen/GI: Soft, non-tender, with normal bowel sounds. No distension or tympany. No guarding or rebound. No evidence of tenderness throughout. Skin: Warm, dry with normal turgor. Normal color with no rashes, no lesions, and no evidence of cellulitis. MS/ Extremity: Pulses equal, no cyanosis. Neurovascular intact. Full, normal range of motion. 00:14 ECG was reviewed by the Attending Physician. ms3 Vital Signs: 04/20 23:19 BP 134 / 93; Pulse 82; Resp 16 S; Temp 97.9(O); Pulse Ox 100% on R/A; Weight 65.77 kg as6 (R); Height 5 ft. 7 in. (R); Pain 0/10; 04/21 00:30 BP 105 / 69; Pulse 74; Resp 16 S; Pulse Ox 98% on R/A; jw7 04/20 23:19 Body Mass Index 22.71 (65.77 kg, 170.18 cm) as6 04/20 23:19 Pain Scale: Adult as6 MDM: 04/20 23:19 Patient medically screened. ms3 04/21 00:11 Differential diagnosis: PNA vs PTX. ms3 00:35 Data reviewed: vital signs, nurses notes, radiologic studies, and as a result, I will ms3 discharge patient. Independent interpretation of the following test(s) in the Emergency Department X-Ray: My interpretation is Chest x-ray image reviewed by me does not reveal pneumonia or pneumothorax. Care significantly affected by the following chronic conditions: Asthma. Counseling: I had a detailed discussion with the patient and/or guardian regarding the historical points, exam findings, and any diagnostic results supporting the discharge/admit diagnosis, radiology results, the need for outpatient follow up, to return to the emergency department if symptoms worsen or persist or if there are any questions or concerns that arise at home. ED course: Patient remained symptom-free on reevaluation. Patient is alert and oriented x 4, no apparent distress, nontoxic-appearing, ambulatory number department, speaking full sentences. Patient to follow-up with primary care physician 2 to 3 days. Patient understands and agrees with plan. All questions were answered. Return precautions discussed include worsening symptoms, or any other concerns. 04/20 23:19 Order name: Chest Pa And Lat (2 Views) XRAY ms3 04/20 23:19 Order name: EKG; Complete Time: 23:20 ms3 04/20 23:19 Order name: EKG - Nurse/Tech; Complete Time: 23:32 ms3 EC:14 Rate is 71 beats/min. Rhythm is regular. QRS [place] is Normal. NM interval is normal. QRS ms3 interval is normal. Clinical impression: NSR w/ Non-specific ST/T Changes. Interpreted by me. Reviewed by me. Administered Medications: No medications were administered Disposition Summary: 04/22/23 00:35 Discharge Ordered Notes: Location: Home ms3 Condition: Stable ms3 Diagnosis - Chest pain, unspecified ms3 Followup: ms3 - With: Private Physician - When: 2 - 3 days - Reason: Recheck today's complaints Discharge Instructions: - Discharge Summary Sheet ms3 - Nonspecific Chest Pain, Adult ms3 Forms: - Medication Reconciliation Form ms3 - Thank You Letter ms3 - Antibiotic Education ms3 - Prescription Opioid Use ms3 - Patient Portal Instructions ms3 - Leadership Thank You Letter ms3 Signatures: Dispatcher [employer] EDErvin Zurita, DO DO ms3 Geo Sands, RN RN as6
[2023-04-22 01:17] VITALS: BP 105/69; TEMP 97.9; O2SAT 98
--- NOTE | 2023-04-23 10:57 | RAD REPORT ---
EXAM DESCRIPTION: RAD - Chest Pa And Lat (2 Views) - 04/22/2023 12:15 am CLINICAL HISTORY: CHEST PAIN TECHNIQUE: Frontal and lateral views of the chest. COMPARISON: No relevant prior studies available. FINDINGS: Lungs: Unremarkable. No consolidation. Pleural space: Unremarkable. No pneumothorax. Heart: Unremarkable. No cardiomegaly. Mediastinum: Unremarkable. Normal mediastinal contour. Bones/joints: Unremarkable. No acute fracture. IMPRESSION: No acute disease. 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 The interpreting r adiologist is fully responsible for the content of the report.
== END ==
LOC: ER 23:01
DX: R07.9 Chest pain, unspecified (principal)
CPT/HCPCS: 71046; 99282

== ENCOUNTER 2023-12-08 16:28 | Emergency (ER) | payer OTHER ==
[2023-12-08 17:55] LABS: Absolute Eosinophils 0.6 K/uL (0-0.5); Absolute Lymphocytes (CBC) 1.8 K/uL (0.7-4.9); Absolute Monocytes 0.6 K/uL (0.1-1.3); Absolute Neutrophil 4.4 K/uL (1.8-8.0); Basophils % 0.5 % (0-1.3); Eosinophils % 8.1 % (0-4.4); Hematocrit 41.4 % (36.0-45.0); Hemoglobin 13.7 g/dL (12.0-15.0); Lymphocytes % 24.2 % (15.3-44.8); MCH 30.7 pg (27.0-35.0); MCHC 33.2 g/dL (32.0-36.0); MCV 92.7 fL (80-100); Monocytes % 7.6 % (3.3-12.3); Neutrophils % 59.6 % (41.7-73.7); Platelets 330 thou/uL (152-406); RBC Red Blood Cell Count 4.46 M/uL (3.86-4.86); Red Cell Distribution Width 12.6 % (12.1-15.2)
[2023-12-08 18:07] LABS: Anion Gap 6.3 mEq/L (5.0-15.0); BUN Blood Urea Nitrogen 11 mg/dL (7-18); Bicarbonate 28 mEq/L (21-32); Glomerular Filtration Rate 104 ml/min (=/>90); Glucose Level 79 mg/dL (74-106); Potassium 3.3 mEq/L (3.5-5.1); Sodium Level 144 mEq/L (136-145)
[2023-12-08 18:12] LABS: Troponin High Sensitivity < 3.0 pg/mL (<58.9)
--- NOTE | 2023-12-08 18:26 | RAD REPORT ---
EXAMINATION: ONE VIEW CHEST XR CLINICAL INDICATION: Female, 23 years old.,CHEST PAIN TECHNIQUE: Frontal chest projection is submitted. Examination is limited by patient positioning and t echnique. COMPARISON: 04/22/2023 FINDINGS: The lungs are well inflated and clear. No pneumothorax or sizable effusion. The heart is normal in s ize. IMPRESSION: No acute intrathoracic abnormalities.
--- NOTE | 2023-12-08 18:31 | ER ---
Nurse's Notes [facility] Name: Alia Gonzalez Age: 23 yrs Sex: Female : 2000 Arrival Date: 12/08/2023 Time: 16:28 Bed 8 Private MD: Diagnosis: Costochondritis Presentation: 12/07 16:51 Chief complaint: Chief complaint: Patient states: "I was drinking alcohol a little aa5 today and I started feeling some chest pain like it was hard to breathe but then it went away and it came back while I was grocery shopping". 16:51 Coronavirus screen: At this time, the client does not indicate any symptoms associated aa5 with coronavirus-19. Ebola Screen: Patient denies travel to an Ebola-affected area in the 21 days before illness onset. Initial Sepsis Screen: Does the patient meet any 2 criteria? No. Patient's initial sepsis screen is negative. Does the patient have a suspected source of infection? No. Patient's initial sepsis screen is negative. Risk Assessment: Do you want to hurt yourself or someone else? Patient reports no desire to harm self or others. Onset of symptoms was November 2023. 16:51 Acuity: ADRIANA 3 aa5 16:51 Method Of Arrival: Ambulatory aa5 Triage Assessment: 17:00 General: Appears in no apparent distress. comfortable, Behavior is cooperative, bp appropriate for age, anxious. Pain: Complains of pain in chest. Cardiovascular: Rhythm is sinus rhythm. Historical: - Allergies: 16:52 No Known Allergies; aa5 - PMHx: 16:51 Asthma; aa5 16:52 Transitioning to Male; aa5 - Immunization history:: Adult Immunizations up to date. - Infectious Disease History:: Denies. - Social history:: Smoking status: Reported history of juuling and/or vaping. Screenin:52 [facility] ED Fall Risk Assessment (Adult) History of falling in the last 3 months, bp including since admission No falls in past 3 months (0 pts) Confusion or Disorientation No (0 pts) Intoxicated or Sedated No (0 pts) Impaired Gait No (0 pts) Mobility Assist Device Used No (0 pt) Altered Elimination No (0 pt) Score/Fall Risk Level 0 - 2 = Low Risk. Abuse screen: Denies threats or abuse. Denies injuries from another. Nutritional screening: No deficits noted. Tuberculosis screening: No symptoms or risk factors identified. Assessment: 17:00 General: Appears in no apparent distress. Behavior is appropriate for age. Pain: Pain bp does not radiate. Pain began suddenly. Vital Signs: 16:51 Pulse 85; Resp 16 S; Temp 98.2(TE); Pulse Ox 100% on R/A; Weight 72.57 kg (R); Height 5 aa5 ft. 6 in. (R); 18:52 BP 114 / 75; Pulse 72; Resp 16; Pulse Ox 100% ; bp 16:51 Body Mass Index 25.82 (72.57 kg, 167.64 cm) aa5 ED Course: 16:30 Patient arrived in ED. ra3 16:51 Arm band placed on. aa5 16:54 Triage completed. aa5 16:54 [facility]C [facility] dr5 16:54 Srinivas Maldonado MD is Attending Physician. dr5 17:10 Raven Dean, RN is Primary Nurse. ph 17:26 Initial lab(s) drawn, by ne, sent to lab. EKG done, by ED staff, reviewed by Srinivas Maldonado MD. Inserted saline lock: 20 gauge in right antecubital area, using aseptic technique. Blood collected. Flushed with 10 mL NS. 17:30 XRAY Chest (1 view) In Process Unspecified. EDMS 18:52 Patient has correct armband on for positive identification. Client placed on continuous bp cardiac and pulse oximetry monitoring. NIBP monitoring applied. court recording monitor on. Pulse ox on. NIBP on. 18:52 No provider procedures requiring assistance completed. IV discontinued, intact, bp bleeding controlled, No redness/swelling at site. Pressure dressing applied. Patient maintains SpO2 saturation greater than 95% on room air. Administered Medications: No medications were administered Medication: 18:52 VIS not applicable for this client. bp Outcome: 18:30 Discharge ordered by . dr5 18:52 Discharged to home ambulatory, bp 18:52 Condition: stable 18:52 Discharge instructions given to patient, Instructed on discharge instructions, follow up and referral plans. medication usage, Demonstrated understanding of instructions, follow-up care, medications, Prescriptions given X 1, 18:53 Patient left the ED. bp Signatures: Dispatcher [facility] Nga Davidson, RN RN aa5 Raven Dean RN RN Rodo Vo, RN RN Jenifer Matute ra3 Tank Steinberg, PST SPECIALIST-C PST SPECIALIST-Cdr5 Corrections: (The following items were deleted from the chart) 16:55 16:51 Chief complaint: aa5 aa5
--- NOTE | 2023-12-08 18:31 | EDPHYS ---
Physician Documentation [facility] Name: Alia Gonzalez Age: 23 yrs Sex: Female : 2000 Arrival Date: 12/08/2023 Time: 16:28 Bed 8 Private MD: ED Physician Srinivas Maldonado HPI: 12/07 18:34 This 23 yrs old Female presents to ER via Ambulatory with complaints of Chest dr5 Pain. 18:34 Onset: The symptoms/episode began/occurred acutely. Associated signs and symptoms: dr5 Pertinent positives: chest pain. Modifying factors: the patient symptoms are aggravated by. This is a 23 year old cisgender female presenting with intermittent chest pain. Patient had 20 minute episode of chest pain at rest while at home that resolved. Then had another episode of chest pain that lasted 10 minutes 3.5 hours before arrival. Pt reports taking some alcoholic shots this morning and vaping prior to beginning of episode. Pt reports substernal chest discomfort when pain occurs.. Historical: - Allergies: 16:52 No Known Allergies; aa5 - PMHx: 16:51 Asthma; aa5 16:52 Transitioning to Male; aa5 - Immunization history:: Adult Immunizations up to date. - Infectious Disease History:: Denies. - Social history:: Smoking status: Reported history of juuling and/or vaping. ROS: 18:34 Constitutional: as per hpi dr5 Exam: 18:34 Constitutional: This is a well developed, well nourished patient who is awake, alert, dr5 and in no acute distress. Head/Face: Normocephalic, atraumatic. Neck: Trachea midline, no thyromegaly or masses palpated, and no cervical lymphadenopathy. Supple, full range of motion without nuchal rigidity, or vertebral point tenderness. No Meningismus. Chest/axilla: Normal chest wall appearance and motion. Nontender with no deformity. No lesions are appreciated. Cardiovascular: Regular rate and rhythm with a normal S1 and S2. Normal PMI, no JVD. No pulse deficits. Respiratory: Lungs have equal breath sounds bilaterally, clear to auscultation. No rales, rhonchi or wheezes noted. No increased work of breathing, no retractions or nasal flaring. Vital Signs: 16:51 Pulse 85; Resp 16 S; Temp 98.2(TE); Pulse Ox 100% on R/A; Weight 72.57 kg (R); Height 5 aa5 ft. 6 in. (R); 18:52 BP 114 / 75; Pulse 72; Resp 16; Pulse Ox 100% ; bp 16:51 Body Mass Index 25.82 (72.57 kg, 167.64 cm) aa5 MDM: 16:54 Medical Screening Exam initiated dr5 17:22 Differential diagnosis: viral Infection, Stable angina, unstable angina, PNA, anxiety. dr5 Data reviewed: vital signs, nurses notes. Consideration of Admission/Observation Escalation of care including admission/observation considered. Considered escalation for positive troponin. Care significantly affected by the following chronic conditions: Asthma. Care significantly affected by the following Social Determinants of Health: Poor access to healthcare and/or lack of insurance, Poor access to transportation. Counseling: I had a detailed discussion with the patient and/or guardian regarding the historical points, exam findings, and any diagnostic results supporting the discharge/admit diagnosis, lab results, radiology results, the need for outpatient follow up, for definitive care, a family practitioner, to return to the emergency department if symptoms worsen or persist or if there are any questions or concerns that arise at home. ED course: Pt is pain free on discharge. Will give hydroxyzine to use PRN for anxiety. PCP follow up recommended for continued pain.. 12/07 17:05 Order name: Basic Metabolic Panel; Complete Time: 18:12/07 17:05 Order name: CBC with Diff; Complete Time: 18:04 12/07 17:05 Order name: Troponin HS; Complete Time: 18:12/07 17:05 Order name: XRAY Chest (1 view); Complete Time: 18:12/07 17:05 Order name: EKG; Complete Time: 17:12/07 17:05 Order name: Cardiac monitoring; Complete Time: :12/07 17:05 Order name: EKG - Nurse/Tech; Complete Time: 17:12/07 17:05 Order name: IV Saline Lock; Complete Time: 17:12/07 17:05 Order name: Labs collected and sent; Complete Time: 17:12/07 17:05 Order name: O2 Per Protocol; Complete Time: 17:12/07 17:05 Order name: O2 Sat Monitoring; Complete Time: 17:25 dr5 EC: Rate is 83 beats/min. Rhythm is regular. QRS [place] is Normal. IA interval is normal at dr5 160 msec. QRS interval is normal at 78 msec. QT interval is normal at 388 msec. Administered Medications: No medications were administered Disposition Summary: 12/08/23 18:30 Discharge Ordered Notes: Location: Home dr5 Condition: Stable dr5 Diagnosis - Costochondritis dr5 Followup: dr5 - With: Emergency Department - When: As needed - Reason: Worsening of condition Followup: dr5 - With: Private Physician - When: 1 - 2 days - Reason: Recheck today's complaints, Continuance of care, Re-evaluation by your physician Discharge Instructions: - Discharge Summary Sheet dr5 - Chest Wall Pain dr5 - Managing Anxiety, Adult dr5 Forms: - Medication Reconciliation Form dr5 - Patient Portal Instructions dr5 - Leadership Thank You Letter dr5 Prescriptions: - Hydroxyzine HCl 25 mg Oral tablet - take 1 tablet ORAL route every 6 hours As needed; 20 tablet; Refills: 0, dr5 Product Selection Permitted Signatures: Dispatcher [employer] Nga Broderick RN RN aa5 Tank Steinberg, HEALTH CARE SOCIAL WORKER-C HEALTH CARE SOCIAL WORKER-Cdr5 Corrections: (The following items were deleted from the chart) 17:05 17:05 BASIC METABOLIC PANEL+C.LAB.BRZ ordered. EDMS EDMS 17:05 17:05 CBC+H.LAB.BRZ ordered. EDMS EDMS 17:05 17:05 Troponin High Sensitivity+C.LAB.BRZ ordered. EDMS EDMS
[2023-12-09 06:39] VITALS: TEMP 98.2; O2SAT 100
[2023-12-09 06:40] VITALS: BP 114/75
--- NOTE | 2023-12-09 15:03 | EKG ---
Test Date: 2023-12-08 Test Time: 17:22:00 [employer] Drawer: PH MEASUREMENT RESULTS: Intervals: Rate: 83 AL: 160 QRSD: 78 QT: 388 QTc: 455 [place]: P: 40 AL: 160 QRS: 52 T: 30 INTERPRETIVE STATEMENTS: Normal sinus rhythm with sinus arrhythmia Normal ECG Compared to ECG 04/21/2023 23:18:05 T-wave abnormality no longer present Electronically Signed On 12-09-23 15:02:28 CDT by Brannon Collins
== END 2023-12-08 18:53 | disposition home or self-care (01) ==
LOC: ER 16:28
DX: M94.0 Chondrocostal junction syndrome [Tietze] (principal)
CPT/HCPCS: 36415; 71045; 80048; 84484; 85025; 93005; 99284